=== PATIENT | male | born 2000 | race Asian ===

== ENCOUNTER 2023-05-08 23:18 | Emergency (ER) | payer OTHER ==
[2023-05-08 23:24] VITALS: BP 115/62; PULSE 103; RESP 16; TEMP 99.2; BMI 28.4
[2023-05-09] MEDS ORDERED: ONDANSETRON *ODT* 4 MG TABLET SL ONE (00:55)
[2023-05-09] MEDS ORDERED: KETOROLAC TROMETHAMINE 15 MG/ML VIAL IM ONE (00:55)
[2023-05-09] MEDS ORDERED: ONDANSETRON *ODT* 4 MG TABLET ONE (01:03)
[2023-05-09] MEDS ORDERED: KETOROLAC TROMETHAMINE 15 MG/ML VIAL ONE (01:03)
[2023-05-09 01:43] LABS: EPI CELLS 8 /uL (0-25.1); HYALINE CASTS 1 /uL (0-3.1); PH,URINE 6.5 (5.0-8.0); URINE APPEARANCE CLEAR; URINE BACTERIA 4 /uL (0-1359); URINE BILIRUBIN NEGATIVE (NEGATIVE); URINE COLOR DK YELLOW; URINE GLUCOSE (UA) NEGATIVE (NEGATIVE); URINE KETONE TRACE (NEGATIVE); URINE LEUK ESTERASE NEGATIVE (NEGATIVE); URINE NITRITE NEGATIVE (NEGATIVE); URINE PROTEIN 1+ (NEGATIVE); URINE WBC 9 /uL (0-25.8)
[2023-05-09 02:45] LABS: URINE RBC 56.7 /uL (0-23.9)
== END 2023-05-09 03:11 | disposition home or self-care (01) ==
LOC: JER 23:18
PROC: 3E0233Z Introduction of Anti-inflammatory into Muscle, Percutaneous Approach (ICD-10-PCS; principal; 2023-05-09)
DX: R50.9 Fever, unspecified (principal); N20.0 Calculus of kidney; R05.9 Cough, unspecified; R10.9 Unspecified abdominal pain; R35.0 Frequency of micturition; J02.9 Acute pharyngitis, unspecified
CPT/HCPCS: 71045-TC-FY; 81003; 87086; 87651; 99284-25; Q0162